=== PATIENT | female | born 1995 | race Caucasian/White ===

== ENCOUNTER 2023-03-02 01:08 | Emergency (ER) | payer SELFPAY ==
[2023-03-02] MEDS ORDERED: Ipratropium/Albuterol 3 ML NEB ONE (01:57)
== END 2023-03-02 02:47 | disposition home or self-care (01) ==
LOC: CSHERS 01:08
DX: R09.1 Pleurisy (principal); R06.00 Dyspnea, unspecified; I10 Essential (primary) hypertension; G43.909 Migraine, unspecified, not intractable, without status migrainosus
CPT/HCPCS: 71045; 93005; 94640; 94760; J7620